=== PATIENT | male | born 1990 | race Caucasian/White ===

== ENCOUNTER 2019-10-01 17:04 | Emergency (ER) | payer SELFPAY ==
--- NOTE | 2019-10-01 18:27 | ED ---
Upper Extremity Pain - HPI Summary HPI Summary: 29-year-old right-hand dominant male with no significant past medical history presents to the emergency department today complaining of right elbow pain after snowboarding accident. Patient states approximately 2 hours ago he fell and had immediate 10 out of 10 pain to his right elbow which is made worse with movement. There is obvious deformity of the right elbow. Patient is able to move his fingers and is neurovascularly intact in the right upper extremity. Patient's otherwise well and denies fever, chest pain, abdominal pain, pain with urination, nausea, vomiting, diarrhea, rash. Surgical history family history is noncontributory. - History of Current Complaint Chief Complaint: EDExtremityUpper Stated Complaint: ELBOW INJURY PER PT Time Seen by Provider: 10/01/19 18:26 Hx Obtained From: Patient Onset/Duration: Started Hours Ago Timing: Constant Severity Initially: Severe Severity Currently: Severe Pain Location: Elbow Character: Aching Aggravating Factor(s): Movement, Lifting, Flexion, Extension, Internal/External Rotation, Abduction, Adduction Associated Signs & Symptoms: Positive: Swelling Related History: Dominant Hand Right - Allergies/Home Medications Allergies/Adverse Reactions: Allergies Allergy/AdvReac Type Severity Reaction Status Date / Time No Known Allergies Allergy Verified 10/01/19 17:17 Home Medications: Home Medications NK [No Home Medications Reported] 10/01/19 [History Confirmed 10/01/19] PMH/Surg Hx/FS Hx/Imm Hx Infectious Disease History: No Infectious Disease History: Denies: Traveled Outside the [place] in Last 30 Days Review of Systems Constitutional: Negative Eyes: Negative ENT: Negative Cardiovascular: Negative Respiratory: Negative Gastrointestinal: Negative Genitourinary: Negative Positive: Arthralgia, Myalgia, Decreased ROM, Edema Skin: Negative Neurological/Mental Status: Negative Psychological: Normal All Other Systems Reviewed And Are Negative: Yes Physical Exam - Summary Physical Exam Summary: Patient is no acute distress. There is obvious deformity of the right elbow. Radial pulse 2+ bilaterally. Patient is neurovascularly intact. Patient has decreased range of motion of the right elbow due to pain. Triage Information Reviewed: Yes Vital Signs On Initial Exam: Initial Vitals Temp Pulse Resp BP Pulse Ox 98.7 F 105 16 135/80 98 10/01/19 17:14 10/01/19 17:14 10/01/19 17:14 10/01/19 17:14 10/01/19 17:14 Vital Signs Reviewed: Yes Appearance: Positive: Well-Appearing, No Pain Distress, Well-Nourished Skin: Positive: Warm, Skin Color Reflects Adequate Perfusion Eyes: Positive: EOMI, AMBERLY ENT: Positive: Hearing grossly normal Respiratory/Lung Sounds: Positive: Clear to Auscultation, Breath Sounds Present Cardiovascular: Positive: RRR, S1, S2 Musculoskeletal: Positive: Strength/ROM Intact Neurological: Positive: Sensory/Motor Intact, Alert, Oriented to Person Place, Time, Normal Gait, Facial Symmetry, Speech Normal Psychiatric: Positive: Normal, Affect/Mood Appropriate AVPU Assessment: Alert Procedures - Sedation Patient Received Moderate/Deep Sedation with Procedure: Yes Are You The Provider Who Administered The Sedation: Abbott of Provider Whom Sedated Patient: Norman Lundberg - Splinting Right Upper Extremity Hand-Made Type: fiberglass Splint: posterior arm Pre-Proc Neuro Vasc Exam: normal Post-Proc Neuro Vasc Exam: normal Splint Applied by Provider: Petrona Jansen - Joint Reduction Right Joint Reduction Site: elbow (R) Conscious Sedation: Yes Reduction Attempts: 3 Pre-Procedure NV Exam: Yes Post Joint Reduction Film: no fracture seen Diagnostics - Vital Signs Vital Signs Temp Pulse Resp BP Pulse Ox 10/01/19 17:14 98.7 F 105 16 135/80 98 - Laboratory Lab Statement: Any lab studies that have been ordered have been reviewed, and results considered in the medical decision making process. Course/Dx - Course Course Of Treatment: Patient was evaluated in the emergency department today for right elbow pain. Vitals noted. Patient is neurovascularly intact. X-ray was done which showed posterior dislocation of the right elbow with no evidence of fracture. Reduction of the right elbow was attempted using 100 g of fentanyl. Reduction was unsuccessful. moderate sedation was used and reduction was attempted again. Moderate sedation was performed by Dr. Lundberg. Second attempt at reduction was unsuccessful. Orthopedist, Dr. Jansen was consulted who agreed to come to the emergency department for reduction. Third attempt at reduction was done by orthopedist, Dr. Jansen which was done successfully. This was done with conscious sedation performed by Dr. Lundberg. Postreduction films proved successful reduction with no evidence of fracture. Patient was placed in posterior long-arm splint, given arm sling and was neurovascularly intact. Patient discharged with outpatient follow-up with orthopedics. - Diagnoses Differential Diagnosis/HQI/PQRI: Positive: Arthritis, Fracture (Closed), Strain , Sprain Provider Diagnoses: Dislocation of right elbow Discharge ED - Sign-Out/Discharge Documenting (check all that apply): Patient Departure - Discharge Plan Condition: Stable Disposition: HOME Patient Education Materials: Elbow Dislocation (ED), Moderate Sedation (ED) Referrals: No Primary Care Phys,NOPCP [Primary Care Provider] - Petrona Jansen MD [Medical Doctor] - 4 Days Additional Instructions: You were seen in the emergency department today due to a dislocated right elbow. You were placed in a splint after your elbow is put back in place. Please keep the splint in place and dry until you're seen by an orthopedic doctor in 5-7 days. I have given you referral to an orthopedic doctor in our practice however please call tomorrow and set up an appointment with an orthopedic doctor at home. You may take ibuprofen 600 mg every 6 hours as needed for pain. Please keep your arm in a sling for relief of symptoms. Please return to the emergency department immediately if you develop any new or worsening symptoms. - Billing Disposition and Condition Condition: STABLE Disposition: Home - Attestation Statements Provider Attestation: Patient is here with a right elbow this location following a snowboarding accident. Patient was seen by the MARCELA. Transfer had a reduction in the ED first without sedation and then with sedation without success. Orthopedic surgery came to the hospital and perform stress successful reduction while I performed sedation.
[2019-10-01] MEDS: fentaNYL* 50 MCG/ML 2 ML VIAL (100 MCG VIAL) IV SLOW PU ONE ×2 (18:47→19:00)
[2019-10-01] MEDS ORDERED: fentaNYL* 50 MCG/ML 2 ML VIAL (100 MCG VIAL) ONE (18:59)
[2019-10-01] MEDS ORDERED: Propofol* 10 MG/ML 20 ML BTL IV PUSH ONE (19:18)
[2019-10-01] MEDS ORDERED: Propofol* 10 MG/ML 100 ML BTL IV ONE (19:30)
--- NOTE | 2019-10-01 20:18 | PN ---
Progress Note - Progress Note Date of Service: 10/01/19 Note: Dr. Lundberg performed sedation, LIZA Goldman performed joint reduction. A total of 105 mg propofol was used. 105 mg of propofol was given in two separate doses (70mg and 35mg). Moderate sedation was achieved. No complications during procedure but unsuccessful reduction attempt. ED Sedation - Procedural Sedation/Analgesia Sedation Course: RT Present, Emergency Airway Equipment Available, Informed Consent Obtained, Time Out Completed, End-tidal Capnography Utilized Adverse Reactions Experienced by Patient: None Mallampati Classification: Class II ASA Classification: Class I: Normal/Healthy Diagnosis: right elbow dislocation Pre-Procedural Heart: No Murmur Pre-Procedural Lungs: Clear Auscultation Comment/Plan of Care: 105 mg of propofol was given in two separate doses (70mg and 35mg). Unsuccessful reduction attempt Provider Procedure Attestation: With My Signature Below, I Attest to have Personally Reviewed and Agree with the Pre-Sedation History and Pre-Service Assessment Update Cleared for Moderate Sedation: Yes Pre-Procedural Diagnosis: right elbow dislocation Post-Procedural Diagnosis: right elbow dislocation Procedure: elbow dislocation reduction Estimated Blood Loss: None Specimen(s): None Findings: None Implants/Tubes/Drains Placed: None
--- NOTE | 2019-10-01 21:52 | PN ---
Progress Note - Progress Note Date of Service: 10/01/19 Note: First attempt of joint reduction w/ moderate sedation was unsuccessful. Patient was placed under moderate sedation by Dr. Lundberg once more. 105 mg propofol was administered. Joint reduction was successful, no complications during procedure. <Alo Lock - Last Filed: 10/01/19 22:02> ED Sedation - Procedural Sedation/Analgesia Sedation Course: RT Present, Emergency Airway Equipment Available, Informed Consent Obtained, Time Out Completed, End-tidal Capnography Utilized Adverse Reactions Experienced by Patient: None Mallampati Classification: Class II ASA Classification: Class I: Normal/Healthy Diagnosis: right elbow dislocation Pre-Procedural Heart: No Murmur Pre-Procedural Lungs: Clear Auscultation Comment/Plan of Care: 105 mg of propofol was given in two separate doses (70mg and 35mg). Successful reduction attempt Provider Procedure Attestation: With My Signature Below, I Attest to have Personally Reviewed and Agree with the Pre-Sedation History and Pre-Service Assessment Update Cleared for Moderate Sedation: Yes Pre-Procedural Diagnosis: right elbow dislocation Post-Procedural Diagnosis: successfully reduced right elbow dislocation Estimated Blood Loss: None Specimen(s): None Findings: None Implants/Tubes/Drains Placed: None <Alo Lock - Last Filed: 10/01/19 22:02> - Procedural Sedation/Analgesia Provider Procedure Attestation: With My Signature Below, I Attest to have Personally Reviewed and Agree with the Pre-Sedation History and Pre-Service Assessment Update Procedure: elbow dislocation reduction <Norman Lundberg - Last Filed: 10/02/19 12:16>
[2019-10-01 22:13] VITALS: BP 141/90
--- NOTE | 2019-10-01 22:43 | CONS ---
CONSULTATION REPORT: DATE OF CONSULT: 10/01/19 CHIEF COMPLAINT: Right elbow pain. HISTORY OF PRESENT ILLNESS: Seamus is a 29-year-old male who was snowboarding this evening and he fell onto his outstretched right arm causing a dislocation of his right elbow; this is a posterior dislocation. X-rays shows a tiny coronoid process fragment, but otherwise no fracture. Attempted reduction by the ED staff was unsuccessful. PHYSICAL EXAM: The patient is a healthy appearing 29-year-old male in moderate distress at rest. His elbow shows a marked deformity with hyperextension. His neurovascular function is intact distally. His skin is intact. IMPRESSION: Posterior dislocation right elbow. PLAN: The patient was sedated and then with hyperextension and forward translation the elbow joint was reduced and with range of motion was stable in rotation and flexion and extension. Post reduction x-ray after splinting at 90 degrees of flexion showed concentric reduction of the dislocation. The patient will continue in the posterior splint and will follow up with an orthopedist at home. He is from [place]. He was advised to take the ibuprofen and Tylenol for pain control, use ice on the elbow and follow up with me before he leaves for home on Sunday as needed. [id number]/CPS #: [id number] MTDD
== END 2019-10-01 22:12 | disposition home or self-care (01) ==
LOC: ED 17:04
DX: S53.124A Posterior dislocation of right ulnohumeral joint, initial encounter (principal); W00.0XXA Fall on same level due to ice and snow, initial encounter; Y93.23 Activity, snow (alpine) (downhill) skiing, snowboarding, sledding, tobogganing and snow tubing; Y92.9 Unspecified place or not applicable
CPT/HCPCS: 24600; 96374; 96375; 99284; J2704; J3010